=== PATIENT | male | born 1965 | race Caucasian/White ===

== ENCOUNTER 2018-02-05 18:37 | Observation (INO) | payer OTHER ==
[~2018-02-05 18:37] MED LIST: ATOR20TA15 PO; DOXE25CA2 PO; FERR28TA PO; GLIP5TAB8 PO; LANTUS2P SQ; LORA1TAB12 PO; MELO15TA20 PO; METF1000 PO; NOVOLOGP2 SQ; OMEP40CA2 PO; VENL75TA PO
[2018-02-05 20:19] VITALS: BP 127/85; PULSE 88; RESP 20; TEMP 98.4; O2SAT 98
[2018-02-05] MEDS ORDERED: PRAZ2CAP PO (20:27)
[2018-02-05] MEDS ORDERED: INSULIN GLARGINE 1,000 UNITS/10 ML VIAL SQ SCH (21:00)
[2018-02-05] MEDS ORDERED: GLUCAGON 1 MG/ML VIAL OTHER PRN (21:00)
[2018-02-05] MEDS ORDERED: SODIUM CHLORIDE 0.9% FLUSH 10 ML FLUSH IV FLUSH PRN (21:00)
[2018-02-05] MEDS ORDERED: PRAZOSIN HCL 2 MG CAP PO SCH (21:00)
[2018-02-05] MEDS ORDERED: RESP: ALBUTEROL 2.5 MG/IPRATROPIUM 0.5 MG NEB (PRN) INH (21:00)
[2018-02-05] MEDS ORDERED: DEXTROSE 50% IN WATER 50 ML VIAL(D50) IV PUSH PRN (21:00)
[2018-02-05] MEDS: INSULIN ASPART SUPPLEMENTAL SCALE SQ SCH (21:00)
[2018-02-05] MEDS ORDERED: AZITHROMYCIN INJ 500 MG in SODIUM CHLOR 0.9% 250 ML INJ 250 ML IV SCH ×4 (22:00)
[2018-02-05] MEDS: SODIUM CHLOR 0.9% 1000 ML INJ 1,000 ML IV SCH (22:35)
[2018-02-05] MEDS: cefTRIAXone INJ 1,000 MG in SODIUM CHLORIDE 0.9% INJ 100 ML IV SCH (22:35)
[2018-02-05] MEDS: ATORVASTATIN 20 MG TAB PO SCH (22:36)
[2018-02-05] MEDS: SODIUM CHLORIDE 0.9% FLUSH 10 ML FLUSH IV FLUSH SCH (22:36)
[2018-02-05] MEDS: PRAZOSIN HCL 1 MG CAP PO SCH (22:36)
[2018-02-05] MEDS: DOXEPIN HCL 25 MG CAP PO SCH (22:36)
[2018-02-05] MEDS: HEPARIN SODIUM - SQ 10,000 UNITS/ML VIAL SQ SCH (22:37)
[2018-02-06] VITALS (7 sets, daily range): BP systolic 98–148; BP diastolic 52–99; PULSE 73–90; RESP 19–20; TEMP 95.9–98.7; O2SAT 95–98
[2018-02-06] MEDS: HEPARIN SODIUM - SQ 10,000 UNITS/ML VIAL SQ SCH ×3 (04:55→20:28)
[2018-02-06 06:48] LABS: AUTOMATED NEUTROPHIL # 5.5 TH/MM3 (1.8-7.7); BASOPHIL % 0.5 % (0.0-2.0); BICARBONATE 28.7 MEQ/L (21.0-32.0); CALCIUM 8.2 MG/DL (8.5-10.1); EOSINOPHIL # 0.3 TH/MM3 (0-0.4); EOSINOPHIL % 4.2 % (0.0-4.0); HEMATOCRIT 28.3 % (39.0-51.0); LYMPH % 21.4 % (9.0-44.0); LYMPHOCYTE # 1.8 TH/MM3 (1.0-4.8); MEAN CELL VOLUME 74.9 FL (80.0-100.0); MEAN CORPUSCULAR HEMOGLOBIN 23.7 PG (27.0-34.0); MEAN CORPUSCULAR HGB CONC 31.7 % (32.0-36.0); MEAN PLATELET VOLUME 7.7 FL (7.0-11.0); MONO % 7.7 % (0.0-8.0); MONOCYTE # 0.6 TH/MM3 (0-0.9); NEUT % 66.2 % (16.0-70.0); PLATELET COUNT 410 TH/MM3 (150-450); RED BLOOD COUNT 3.79 MIL/MM3 (4.50-5.90); RED CELL DISTRIBUTION WIDTH 16.2 % (11.6-17.2); WHITE BLOOD COUNT 8.2 TH/MM3 (4.0-11.0)
[2018-02-06 06:52] LABS: CREATININE 0.81 MG/DL (0.60-1.30)
[2018-02-06] MEDS: glipiZIDE 5 MG TAB PO SCH ×2 (07:02→16:26)
[2018-02-06] MEDS: SODIUM CHLOR 0.9% 1000 ML INJ 1,000 ML IV SCH ×3 (07:13→20:43)
[2018-02-06 07:48] LABS: OVALOCYTES 1+ (NORMAL)
--- NOTE | 2018-02-06 08:06 | HHI.HP ---
[facility] Ad[facility] Diagnosis Diagnoses: (1) Pneumonia Chief Complaint: Cough Shortness of breath Travel History International Travel<30 Days: No Contact w/Intl Traveler <30 Da: No Traveled to Known Affected Are: No Sepsis Criteria SIRS Criteria (2 or more): Temp > 100.9 or < 96.8, WBC > 32308, < 4000 or > 10 % bands Sepsis Criteria (SIRS+source): Infect source susp/known Severe Sepsis (+one): Lactate >2 Criteria Outcome: Meets sepsis criteria History of Present Illness This is a pleasant 52-year-old male patient with known medical history of hyperlipidemia, diabetes, GERD and hypertension who presented to the ED with complaints of cough 1 month. Patient states that he noticed the cough start over a month ago with the last 5 days he noticed yellow sputum. He states that he feels like when he swallows "goes down the wrong tube". Patient did recently undergo an EGD and colonoscopy on , follows with GI in [place] , states that they did remove a few polyps from his colon and EGD was reportedly unremarkable. Patient does admit to associated pleuritic chest pain , states this has resolved just worsened when he coughs. Does admit to subjective fevers at home, states he did not take his temperature. Does admit to nausea, denies any vomiting. Does admit to audible wheezing. Denies any diaphoresis. Denies any abdominal pain, diarrhea or dysuria. It should also be noted that patient has not been taking his insulin for the past couple days due to being busy. Patient presented with a glucose of over 400's. PCP is the [place], last saw 3 months ago and manages his diabetes. Review of Systems Constitutional: COMPLAINS OF: Fatigue, Fever, Chills Eyes: DENIES: Blurred vision, Diplopia Respiratory: COMPLAINS OF: Cough, Sputum production, Shortness of breath Cardiovascular: DENIES: Chest pain, Palpitations Gastrointestinal: COMPLAINS OF: Nausea, DENIES: Abdominal pain, Black stools, Bloody stools, Constipation, Diarrhea, Vomiting Musculoskeletal: DENIES: Joint pain Hematologic/lymphatic: DENIES: Bruising Neurologic: DENIES: Abnormal gait Psychiatric: DENIES: Anxiety Except as stated in HPI: all other systems reviewed are Neg Past Family Social History Past Medical History Diabetes Hyperlipidemia Hypertension GERD Insomnia PTSD Depression Past Surgical History Unspecified right elbow repair Left knee arthroscopy Jaw repair Appendectomy Cholecystectomy Reported Medications Active Reported Prazosin (Prazosin HCl) 2 Mg Cap 2 Mg PO Lorazepam 1 Mg Tab 1 Mg PO QID Doxepin (Doxepin HCl) 25 Mg Cap 25 Mg PO HS Omeprazole 40 Mg Cap 40 Mg PO DAILY Atorvastatin (Atorvastatin Calcium) 20 Mg Tab 20 Mg PO HS Iron (Ferrous Gluconate) 256 Mg (28 Mg Iron) Tab 324 Mg PO BID Glipizide 5 Mg Tab 5 Mg PO BIDAC Take 30 minutes before a meal Metformin (Metformin HCl) 1,000 Mg Tab 1,000 Mg PO BIDPC Meloxicam 15 Mg Tab 15 Mg PO DAILY Effexor (Venlafaxine HCl) 75 Mg Tab 225 Mg PO DAILY Lantus Inj (Insulin Glargine) 1,000 Unit/10 Ml Vial 50 Units SQ HS Novolog Inj (Insulin Aspart) 1,000 Unit/10 Ml Vial 5 Units SQ BID Allergies: Coded Allergies: No Known Allergies (Unverified , 02/05/18) Active Ordered Medications Current Medications Medications (Trade) Dose Ordered Sig/Jimbo Route Start Time Stop Time Status Last Admin (D50w (Vial) Inj) 50 ml UNSCH PRN IV PUSH 02/05/18 21:00 (Glucagon Inj) 1 mg UNSCH PRN OTHER 02/05/18 21:00 (NovoLOG SUPPLEMENTAL SCALE) 1 ACHS SLIDING SCALE SQ 02/05/18 21:00 02/05/18 21:00 (Lipitor) 20 mg HS PO 02/05/18 21:00 02/05/18 22:36 (SINEquan) 25 mg HS PO 02/05/18 21:00 02/05/18 22:36 (Glucotrol) 5 mg BIDAC PO 02/06/18 07:00 02/06/18 07:02 (Lantus Inj) 50 units HS SQ 02/05/18 21:00 Future Hold (Ferrous Sulfate) 325 mg BID PO 02/06/18 09:00 (Protonix) 40 mg DAILY PO 02/06/18 09:00 (Effexor Xr) 225 mg DAILY PO 02/06/18 09:00 Ceftriaxone Sodium 1000 mg/ Sodium Chloride 100 ml @ 200 mls/hr Q24H IV 02/05/18 21:00 02/05/18 22:35 Sodium Chloride 1,000 ml @ 100 mls/hr Q10H IV 02/05/18 20:53 02/05/18 22:35 (NS Flush) 2 ml UNSCH PRN IV FLUSH 02/05/18 21:00 (NS Flush) 2 ml BID IV FLUSH 02/05/18 21:00 02/05/18 22:36 (Duoneb Neb) 1 ampule Q6HR NEB INH 02/05/18 22:00 02/06/18 08:37 (Duoneb Neb) 1 ampule Q4HR NEB PRN INH 02/05/18 21:00 (Heparin Inj) 5,000 units Q8H SQ 02/05/18 21:00 02/06/18 04:55 (Minipress) 2 mg HS PO 02/05/18 21:00 02/05/18 22:36 Azithromycin 500 mg/Sodium Chloride 250 ml @ 250 mls/hr Q24H IV 02/05/18 22:00 02/05/18 23:29 Family History Mother has anemia. Father has a history of DM. Social History Denies any tobacco, alcohol or illicit drug use. Physical Exam Vital Signs Vital Signs Date Time Temp Pulse Resp B/P (MAP) Pulse Ox O2 Delivery O2 Flow Rate FiO2 02/06/18 00:13 95.9 73 20 98/63 (75) 95 02/05/18 20:19 98.4 88 20 127/85 (99) 98 Physical Exam GENERAL: Well-developed, well-nourished patient in [facility]. SKIN: Warm and dry. No rash. HEAD: Normocephalic. Atraumatic. EYES: Pupils equal and round. No scleral icterus. No injection or drainage. ENT: No nasal bleeding or discharge. Mucous membranes pink and moist. NECK: Supple. Trachea midline. CARDIOVASCULAR: Regular rate and rhythm. S1, S2 noted. No murmur appreciated. No chest pain to palpation. RESPIRATORY: No accessory muscle use.Posterior expiratory upper lobe wheezing. Breath sounds equal bilaterally. GASTROINTESTINAL: Abdomen soft, non-tender, nondistended. Normoactive bowel sounds x4. MUSCULOSKELETAL: No obvious deformities. Extremities without clubbing, cyanosis , or edema. NEUROLOGICAL: Awake and alert. No obvious cranial nerve deficits. Motor grossly within normal limits. 5/5 muscle strength in bilateral upper and lower extremities. Normal speech. PSYCHIATRIC: Appropriate mood and affect; insight and judgment normal. Laboratory Laboratory Tests Test 02/06/18 05:26 White Blood Count 8.2 Red Blood Count 3.79 Hemoglobin 9.0 Hematocrit 28.3 Mean Corpuscular Volume 74.9 Mean Corpuscular Hemoglobin 23.7 Mean Corpuscular Hemoglobin Concent 31.7 Red Cell Distribution Width 16.2 Platelet Count 410 Mean Platelet Volume 7.7 Neutrophils (%) (Auto) 66.2 Lymphocytes (%) (Auto) 21.4 Monocytes (%) (Auto) 7.7 Eosinophils (%) (Auto) 4.2 Basophils (%) (Auto) 0.5 Neutrophils # (Auto) 5.5 Lymphocytes # (Auto) 1.8 Monocytes # (Auto) 0.6 Eosinophils # (Auto) 0.3 Basophils # (Auto) 0.0 CBC Comment AUTO DIFF Differential Comment AUTO DIFF CONFIRMED Ovalocytes 1+ Blood Urea Nitrogen 10 Creatinine 0.81 Random Glucose 201 Calcium Level 8.2 Sodium Level 142 Potassium Level 3.9 Chloride Level 107 Carbon Dioxide Level 28.7 Anion Gap 6 Estimat Glomerular Filtration Rate 101 Result Diagram: 02/06/1852502/06/18525 Septic Shock Reassessment Septic shock perfusion: reassessment completed Caprini VTE Risk Assessment Caprini VTE Risk Assessment: No/Low Risk (score <= 1) Caprini Risk Assessment Model Point Value = 1 Point Value = 2 Point Value = 3 Point Value = 5 Age 41-60 Minor surgery BMI > 25 kg/m2 Swollen legs Varicose veins or History of unexplained or recurrent spontaneous Oral contraceptives or hormone replacement Sepsis (< 1 month) Serious lung disease, including pneumonia (< 1 month) Abnormal pulmonary function Acute myocardial infarction Congestive heart failure (< 1 month) History of inflammatory bowel disease Medical patient at bed rest Age 61-74 Arthroscopic surgery Major open surgery (> 45 min) Laparoscopic surgery (> 45 min) Malignancy Confined to bed (> 72 hours) Immobilizing plaster cast Central venous access Age >= 75 History of VTE Family history of VTE Factor V Leiden Prothrombin [id number] Lupus anticoagulant Anticardiolipin antibodies Elevated serum homocysteine Heparin-induced thrombocytopenia Other congenital or acquired thrombophilia Stroke (< 1 month) Elective arthroplasty Hip, pelvis, or leg fracture Acute spinal cord injury (< 1 month) Prophylaxis Regimen Total Risk Factor Score Risk Level Prophylaxis Regimen 0-1 Low Early ambulation 2 Moderate Order ONE of the following: *Sequential Compression Device (SCD) *Heparin 5000 units SQ BID 3-4 Higher Order ONE of the following medications: *Heparin 5000 units SQ TID *Enoxaparin/Lovenox 40 mg SQ daily (WT < 150 kg, CrCl > 30 mL/min) *Enoxaparin/Lovenox 30 mg SQ daily (WT < 150 kg, CrCl > 10-29 mL/min) *Enoxaparin/Lovenox 30 mg SQ BID (WT < 150 kg, CrCl > 30 mL/min) AND/OR *Sequential Compression Device (SCD) 5 or more Highest Order ONE of the following medications: *Heparin 5000 units SQ TID (Preferred with Epidurals) *Enoxaparin/Lovenox 40 mg SQ daily (WT < 150 kg, CrCl > 30 mL/min) *Enoxaparin/Lovenox 30 mg SQ daily (WT < 150 kg, CrCl > 10-29 mL/min) *Enoxaparin/Lovenox 30 mg SQ BID (WT < 150 kg, CrCl > 30 mL/min) AND *Sequential Compression Device (SCD) Assessment and Plan Problem List: (1) Pneumonia ICD Code: J18.9 - Pneumonia, unspecified organism Plan: - With associated hypoxia and productive cough and possible dysphagia - Meet sepsis criteria with tachycardia, leukocytosis and elevated lactic acid. White blood cells 15,000 with left band shift, lactic acid 2.6, with low- grade temp. - Chest CT reviewed showing infiltrate consistent with pneumonia right upper lobe. - Patient does complain of shortness of breath and coughing. Patient was hypoxic on presentation, now comfortable on room air, oxygen saturations above 92%. Supplemental O2 as needed. - Patient was started on IV antibiotics, ceftriaxone and azithromycin. Will change regimen to add Metronidazole and continue Ceftriaxone for GI coverage for aspiration pneumonia. - Speech therapy consulted, appreciate input recommendations. Rule out any aspiration. Patient may need possible barium swallow. - Leukocytosis resolved. Lactic acid now within normal limits. Continue IV fluids. Was given IV bolus in ED. - UA negative. D-dimer negative upon presentation. CBC and BMP reviewed. Essentially unremarkable. (2) Diabetes ICD Code: E11.9 - Type 2 diabetes mellitus without complications Plan: Patient with elevated random glucose upon presentation, 387. Patient does admit not taking his insulin for the past several days. Will restart long- acting. Accu-Chek before meals at bedtime, sliding scale, cover as needed. PCP is managing diabetes. Follow blood sugar trends. (3) Dysphagia ICD Code: R13.10 - Dysphagia, unspecified Plan: ST ordered, appreciate input and recommendations. Possible aspiration. May need barium swallow. DVT Prophylaxis: Heparin. SCDs. Margi Muse February 06, 2018 08:06
[2018-02-06] MEDS: RESP: ALBUTEROL 2.5 MG/IPRATROPIUM 0.5 MG NEB (SCH) INH ×3 (08:37→21:07)
[2018-02-06] MEDS: INSULIN ASPART SUPPLEMENTAL SCALE SQ SCH ×4 (09:09→21:13)
[2018-02-06] MEDS: VENLAFAXINE HCL XR 75 MG CAP PO SCH (09:10)
[2018-02-06] MEDS: PANTOPRAZOLE SOD 40 MG DELAYED RELEASE TAB PO SCH (09:10)
[2018-02-06] MEDS: FERROUS SULFATE 325 MG (65 MG ELEMENTAL IRON) TAB PO SCH ×2 (09:10→20:27)
[2018-02-06] MEDS: SODIUM CHLORIDE 0.9% FLUSH 10 ML FLUSH IV FLUSH SCH ×2 (09:10→20:27)
[2018-02-06] MEDS ORDERED: INSULIN DETEMIR 100 UNITS/ML VIAL SQ SCH (10:00)
[2018-02-06] MEDS: IBUPROFEN 600 MG TAB PO PRN (10:20)
[2018-02-06] MEDS: metroNIDAZOLE 500 MG INJ 100 ML IV SCH ×2 (13:45→16:48)
[2018-02-06] MEDS: ATORVASTATIN 20 MG TAB PO SCH (20:27)
[2018-02-06] MEDS: cefTRIAXone INJ 1,000 MG in SODIUM CHLORIDE 0.9% INJ 100 ML IV SCH (20:27)
[2018-02-06] MEDS: PRAZOSIN HCL 1 MG CAP PO SCH (20:28)
[2018-02-06] MEDS: DOXEPIN HCL 25 MG CAP PO SCH (20:28)
[2018-02-06] MEDS: INSULIN DETEMIR 100 UNITS/ML VIAL SQ SCH (21:13)
[2018-02-06] MEDS ORDERED: LORazepam 1 MG TAB PO ONE (22:30)
[2018-02-07] VITALS: BP 136/94; PULSE 85; RESP 20; TEMP 97.3; O2SAT 96
[2018-02-07] MEDS: metroNIDAZOLE 500 MG INJ 100 ML IV SCH ×2 (00:23→06:11)
[2018-02-07] MEDS: RESP: ALBUTEROL 2.5 MG/IPRATROPIUM 0.5 MG NEB (SCH) INH ×2 (03:59→10:45)
[2018-02-07] MEDS: HEPARIN SODIUM - SQ 10,000 UNITS/ML VIAL SQ SCH (05:00)
[2018-02-07 06:17] LABS: AUTOMATED NEUTROPHIL # 3.8 TH/MM3 (1.8-7.7); BASOPHIL % 0.8 % (0.0-2.0); CALCIUM 8.6 MG/DL (8.5-10.1); EOSINOPHIL # 0.3 TH/MM3 (0-0.4); EOSINOPHIL % 4.1 % (0.0-4.0); HEMATOCRIT 28.9 % (39.0-51.0); HEMOGLOBIN 8.8 GM/DL (13.0-17.0); LYMPH % 23.5 % (9.0-44.0); LYMPHOCYTE # 1.4 TH/MM3 (1.0-4.8); MEAN CELL VOLUME 75.4 FL (80.0-100.0); MEAN CORPUSCULAR HEMOGLOBIN 22.8 PG (27.0-34.0); MEAN CORPUSCULAR HGB CONC 30.3 % (32.0-36.0); MEAN PLATELET VOLUME 7.2 FL (7.0-11.0); MONO % 10.4 % (0.0-8.0); MONOCYTE # 0.6 TH/MM3 (0-0.9); NEUT % 61.2 % (16.0-70.0); PLATELET COUNT 427 TH/MM3 (150-450); RED BLOOD COUNT 3.84 MIL/MM3 (4.50-5.90); WHITE BLOOD COUNT 6.1 TH/MM3 (4.0-11.0)
[2018-02-07 06:20] LABS: CREATININE 0.85 MG/DL (0.60-1.30)
[2018-02-07 08:00] VITALS: BP 154/93; PULSE 91; RESP 20; TEMP 97.9; O2SAT 96
--- NOTE | 2018-02-07 08:49 | HHI.PR ---
Subjective Remarks Follow-up pneumonia and uncontrolled diabetes. Patient seen and examined, sitting up in bed doing well. Much improved. Denies any shortness of breath. Has been eating well no abdominal pain nausea, vomiting or diarrhea. Patient has been ambulating well. Will discharge today follow-up with PCP. Encourage compliance with medications. Patient has gastroenterology follow-up from EGD and colonoscopy next week. Vital signs are stable. Afebrile. Objective Vitals Vital Signs Date Time Temp Pulse Resp B/P (MAP) Pulse Ox O2 Delivery O2 Flow Rate FiO2 02/07/18 00:00 97.3 85 20 136/94 (108) 96 02/06/18 21:08 95 21 02/06/18 20:00 98.1 82 20 148/99 (115) 96 02/06/18 16:00 97.6 90 20 136/73 (94) 97 02/06/18 15:06 98 21 02/06/18 12:00 98.7 77 19 121/75 (90) 97 I/O 02/06/18 02/06/18 02/06/18 02/07/18 02/07/18 02/07/18 07:00 15:00 23:00 07:00 15:00 23:00 Intake Total 100 ml 950 ml 2936 ml 660 ml Output Total 1200 ml Balance 100 ml 950 ml 1736 ml 660 ml Intake Oral 600 ml 1000 ml 660 ml IV Total 100 ml 350 ml 1936 ml Output Urine Total 1200 ml # Voids 1 2 # Bowel Movements 1 0 Result Diagram: 02/07/18 0522 02/07/18521 Objective Remarks GENERAL: Well-developed, well-nourished patient in [facility]. SKIN: Warm and dry. No rash. HEAD: Normocephalic. Atraumatic. EYES: Pupils equal and round. No scleral icterus. No injection or drainage. ENT: No nasal bleeding or discharge. Mucous membranes pink and moist. NECK: Supple. Trachea midline. CARDIOVASCULAR: Regular rate and rhythm. S1, S2 noted. No murmur appreciated. No chest pain to palpation. RESPIRATORY: No accessory muscle use.Posterior expiratory upper lobe wheezing. Breath sounds equal bilaterally. GASTROINTESTINAL: Abdomen soft, non-tender, nondistended. Normoactive bowel sounds x4. MUSCULOSKELETAL: No obvious deformities. Extremities without clubbing, cyanosis , or edema. NEUROLOGICAL: Awake and alert. No obvious cranial nerve deficits. Motor grossly within normal limits. 5/5 muscle strength in bilateral upper and lower extremities. Normal speech. PSYCHIATRIC: Appropriate mood and affect; insight and judgment normal. A/P Problem List: (1) Pneumonia ICD Code: J18.9 - Pneumonia, unspecified organism Plan: - With associated hypoxia and productive cough and possible dysphagia - Meet sepsis criteria with tachycardia, leukocytosis and elevated lactic acid. White blood cells 15,000 with left band shift, lactic acid 2.6, with low- grade temp. all resolved today. - Chest CT reviewed showing infiltrate consistent with pneumonia right upper lobe. - Patient does complain of shortness of breath and coughing. This has improved significantly since presentation. Patient was hypoxic on presentation, now comfortable on room air, oxygen saturations above 92%. Supplemental O2 as needed. Has not needed oxygen overnight. - Patient was started on IV antibiotics, ceftriaxone and azithromycin. Will change regimen to add Metronidazole and continue Ceftriaxone for GI coverage for aspiration pneumonia. Will discharge on antibiotics. - Speech therapy consulted, appreciate input recommendations. Aspiration ruled out. No further workup or hospitalization. Patient does have a appointment with gastroenterology next week. Encouraged follow-up. - Leukocytosis resolved. Lactic acid now within normal limits. Continue IV fluids. Was given IV bolus in ED. IV fluids discontinued. Patient tolerating by mouth intake. - UA negative. D-dimer negative upon presentation. CBC and BMP reviewed. Essentially unremarkable. (2) Diabetes ICD Code: E11.9 - Type 2 diabetes mellitus without complications Plan: Patient with elevated random glucose upon presentation, 387. Patient does admit not taking his insulin for the past several days. Will restart long- acting. Accu-Chek before meals at bedtime, sliding scale, cover as needed. PCP is managing diabetes. Follow blood sugar trends. Patient agrees to compliance with his medications upon discharge. This is been stable now, follow -up PCP. (3) Dysphagia ICD Code: R13.10 - Dysphagia, unspecified Plan: No aspiration on ST evaluation. DVT Prophylaxis: Heparin. SCDs. Margi Muse February 07, 2018 08:49
[2018-02-07] MEDS: PANTOPRAZOLE SOD 40 MG DELAYED RELEASE TAB PO SCH (08:52)
[2018-02-07] MEDS: SODIUM CHLOR 0.9% 1000 ML INJ 1,000 ML IV SCH (08:52)
[2018-02-07] MEDS: FERROUS SULFATE 325 MG (65 MG ELEMENTAL IRON) TAB PO SCH (08:52)
[2018-02-07] MEDS: INSULIN DETEMIR 100 UNITS/ML VIAL SQ SCH (08:52)
[2018-02-07] MEDS: glipiZIDE 5 MG TAB PO SCH (08:52)
[2018-02-07] MEDS: INSULIN ASPART SUPPLEMENTAL SCALE SQ SCH (08:52)
[2018-02-07] MEDS: IBUPROFEN 600 MG TAB PO PRN (08:55)
[2018-02-07] MEDS: VENLAFAXINE HCL XR 75 MG CAP PO SCH (08:58)
[2018-02-07] MEDS: SODIUM CHLORIDE 0.9% FLUSH 10 ML FLUSH IV FLUSH SCH (09:00)
--- NOTE | 2018-02-07 10:45 | HHI.DCPOC ---
Discharge Care Plan Diagnosis: (1) Diabetes (2) Pneumonia Goals to Promote Your Health * To prevent worsening of your condition and complications * To maintain your health at the optimal level Directions to Meet Your Goals Take your medications as prescribed Follow your dietary instruction Follow activity as directed Keep your appointments as scheduled Take your immunizations and boosters as scheduled If your symptoms worsen call your PCP, if no PCP go to Urgent Care Center or Emergency Room Smoking is Dangerous to Your Health. Avoid second hand smoke Call the 24-hour hour crisis hotline for domestic abuse at Margi Muse February 07, 2018 10:45
[2018-02-07 10:47] VITALS: O2SAT 97
[2018-02-07] MEDS ORDERED: AMOX500T PO (10:49)
[2018-02-07] MEDS ORDERED: METR1TAB76 PO (10:49)
== END 2018-02-07 12:08 | disposition home or self-care (01) ==
LOC: PHEDDLT 18:37 → PH3A 18:38
PROVIDERS: ADMIT Hospitalist; ATTEND Hospitalist
DX: J18.9 Pneumonia, unspecified organism (principal); E11.65 Type 2 diabetes mellitus with hyperglycemia; K21.9 Gastro-esophageal reflux disease without esophagitis; K44.9 Diaphragmatic hernia without obstruction or gangrene; R13.10 Dysphagia, unspecified; E83.51 Hypocalcemia; R05 Cough; I10 Essential (primary) hypertension; F43.10 Post-traumatic stress disorder, unspecified; Z79.4 Long term (current) use of insulin
CPT/HCPCS: 71046; 71260; 80048; 80053; 81001; 82010; 82948; 83605; 83690; 84484; 85025; 85379; 92610; 93005; 94640; 94664; 96360; 96361; 96365; 96366; 96368; 96372; 97162; 99285; G0378; G8987; G8988; J0456; J0696; J1644; J1815; J7030; J7050; Q9967